=== PATIENT | male | born 1995 | race Caucasian/White ===

== ENCOUNTER 2016-12-07 23:12 | Emergency (ER) | payer OTHER ==
[~2016-12-07] VITALS: Ht 175.3 cm; Wt 90.4 kg
[2016-12-07 23:49] LABS: HEMATOCRIT 42.6 % (38.0-50.0); MCH 29.4 PG (29.0-34.0); MCHC 33.8 G/DL (30.0-36.0); MCV 87.1 FL (86-99); MEAN PLAT.VOLUME 9.6 uM^3 (9.0-12.4); PLATELET COUNT 321 K/uL (156-360); RBC DIS.WIDTH-CV 11.4 % (11.8-14.6); RBC DIS.WIDTH-SD 36.5 % (39-53); RED BLOOD COUNT 4.89 M/uL (4.00-5.50); WHITE BLOOD COUNT 9.6 K/uL (4.1-10.2)
[2016-12-08] LABS: CHLORIDE 106 mEq/L (99-109); POTASSIUM 3.8 mEq/L (3.7-5.4); SODIUM 140 mEq/L (136-147)
[2016-12-08 00:02] LABS: GLUCOSE 96 mg/dL (70-99)
[2016-12-08 00:03] LABS: ANION GAP 7 MEQ/L (2-14)
[2016-12-08 00:04] LABS: TOTAL BILIRUBIN 0.3 mg/dL (0.0-1.0)
[2016-12-08 00:05] LABS: ALKALINE PHOSPHATASE 62 IU/L (3-129)
[2016-12-08 00:07] LABS: UREA NITROGEN (BUN) 15 mg/dL (9-23)
[2016-12-08 00:10] LABS: GFR ESTIMATE (CALCULATED) > 59 mL/min/
[2016-12-08 01:48] LABS: ADD MIUA? NO; BILIRUBIN NEGATIVE; BLOOD NEGATIVE; COLOR YELLOW ((YELLOW)); GLUCOSE (STRIP) NEGATIVE; KETONES NEGATIVE; LEUKOCYTES NEGATIVE; NITRITE NEGATIVE; PROTEIN (STRIP) NEGATIVE; SPECIFIC GRAVITY 1.014 (1.000-1.030); UCUL ADDED? NO; UROBILINOGEN 0.2 MG/DL (0.2-1.0)
[2016-12-08] MEDS ORDERED: ZOFRAN4 MG PO (02:53)
[2016-12-08] MEDS ORDERED: ZOFRAN ODT4 MG PO (02:54)
[2016-12-08 03:22] VITALS: BP 144/72
== END 2016-12-08 03:22 | disposition home or self-care (01) ==
LOC: EME 23:12
DX: R10.9 Unspecified abdominal pain (principal); R11.2 Nausea with vomiting, unspecified; E86.0 Dehydration; K76.0 Fatty (change of) liver, not elsewhere classified
CPT/HCPCS: 74176; 80053; 81003; 85027; 99281; 99284